=== PATIENT | male | born 2000 | race Caucasian/White ===

== ENCOUNTER 2020-06-23 17:49 | Emergency (ER) | payer OTHER ==
[~2020-06-23 17:49] MED LIST: AUGMENTIN 875-1 EACH PO
== END 2020-06-23 23:46 | disposition left against medical advice (07) ==
LOC: ER1 17:49
DX: M54.2 Cervicalgia (principal); M25.511 Pain in right shoulder; M25.512 Pain in left shoulder; Z53.21 Procedure and treatment not carried out due to patient leaving prior to being seen by health care provider

== ENCOUNTER 2020-06-25 15:44 | Emergency (ER) | payer OTHER | END 2020-06-25 18:51 | disposition left against medical advice (07) | LOC: ER1 15:44 | DX: R10.9 Unspecified abdominal pain (principal); M54.9 Dorsalgia, unspecified; M25.561 Pain in right knee; Z53.21 Procedure and treatment not carried out due to patient leaving prior to being seen by health care provider ==

== ENCOUNTER 2021-06-04 23:34 | Emergency (ER) | payer OTHER ==
[2021-06-05] MEDS ORDERED: IBUPROFEN600 MG PO (03:03)
[2021-06-05] MEDS ORDERED: NORFLEX 100 MG100 MG PO (03:03)
== END 2021-06-05 03:16 | disposition home or self-care (01) ==
LOC: ER1 23:34
DX: S43.402A Unspecified sprain of left shoulder joint, initial encounter (principal); F17.200 Nicotine dependence, unspecified, uncomplicated; V49.40XA Driver injured in collision with unspecified motor vehicles in traffic accident, initial encounter; Y92.410 Unspecified street and highway as the place of occurrence of the external cause
CPT/HCPCS: 71045; 72100; 73030; 73552; 73590; 99283

== ENCOUNTER 2021-08-01 00:20 | Emergency (ER) | payer OTHER ==
[~2021-08-01 00:20] MED LIST changes: +IBUPROFEN600 MG PO; +NORFLEX 100 MG100 MG PO
[2021-08-01] MEDS ORDERED: CORTISPORIN OTI10 M1 EARRT (01:17)
== END 2021-08-01 02:05 | disposition home or self-care (01) ==
LOC: ER1 00:20
DX: U07.1 COVID-19 (principal); H60.90 Unspecified otitis externa, unspecified ear; F17.290 Nicotine dependence, other tobacco product, uncomplicated
CPT/HCPCS: 96374; 96375; 99283; J1885; J2405; U0002

== ENCOUNTER 2021-10-14 16:22 | Emergency (ER) | payer OTHER ==
[~2021-10-14 16:22] MED LIST changes: +CORTISPORIN OTI10 M1 EARRT
== END 2021-10-14 18:37 | disposition home or self-care (01) ==
LOC: ER1 16:22
DX: S93.602A Unspecified sprain of left foot, initial encounter (principal); S93.601A Unspecified sprain of right foot, initial encounter; F17.290 Nicotine dependence, other tobacco product, uncomplicated
CPT/HCPCS: 73630; 99283

== ENCOUNTER 2022-03-17 12:22 | Emergency (ER) | payer OTHER ==
[2022-03-17] MEDS ORDERED: ZOFRAN 4 MG TAB4 MG PO (13:37)
== END 2022-03-17 13:53 | disposition home or self-care (01) ==
LOC: ER1 12:22
DX: B34.9 Viral infection, unspecified (principal); F17.290 Nicotine dependence, other tobacco product, uncomplicated; R40.2410 Glasgow coma scale score 13-15, unspecified time; Z20.822 Contact with and (suspected) exposure to COVID-19
CPT/HCPCS: 99284; U0002